=== PATIENT | male | born 1990 | race Caucasian/White ===

== ENCOUNTER 2016-12-29 01:23 | Emergency (ER) | payer OTHER ==
[2016-12-29 01:31] VITALS: BP 115/72; PULSE 65; RESP 18; TEMP 98
== END 2016-12-29 01:52 | disposition home or self-care (01) ==
LOC: EC 01:23
DX: Z02.89 Encounter for other administrative examinations (principal)

== ENCOUNTER 2021-01-28 15:26 | Emergency (ER) | payer BC ==
[2021-01-28] MEDS ORDERED: KETOROLAC 15 MG/ML 1 ML VIAL IM STA (16:23)
--- NOTE | 2021-01-28 17:49 | XR ---
EXAMINATION TYPE: XR humerus RT, XR forearm RT DATE OF EXAM: 01/28/2021 COMPARISON: NONE HISTORY: Fall from skateboard. Fall. TECHNIQUE: AP and lateral views of the right humerus obtained. FINDINGS: There is a nondisplaced radial head fracture. There is significant anterior and posterior f at pad elevation and likely hemarthrosis. There is lucency at the distal radius at the wrist without cortical disruption. No dislocation. Normal mineralization. Shoulder joint is maintained. IMPRESSION: 1. Nondisplaced radial head fracture. Significant fat pad elevation and likely hemarthrosis at the e lbow. 2. Lucency at the distal radius at the wrist, without evidence of cortical disruption. Recommend cor relation with point tenderness. If there is concern for nondisplaced fracture, recommend dedicated wr ist x-ray.
--- NOTE | 2021-01-28 18:50 | XR ---
EXAMINATION TYPE: XR wrist complete RT DATE OF EXAM: 01/28/2021 COMPARISON: Same day right forearm radiograph. HISTORY: . fall. TECHNIQUE: AP, oblique, lateral, and scaphoid views of the right wrist. FINDINGS: No acute fracture. No dislocation. Joint spaces and alignment are normal. Normal mineraliza tion. No significant soft tissue swelling. IMPRESSION: No acute fracture or dislocation of the right wrist.
[2021-01-28 19:02] VITALS: BP 125/77; PULSE 56; RESP 16; TEMP 98
--- NOTE | 2021-01-28 19:05 | ED ---
Upper Extremity HPI - General Chief Complaint: Extremity Injury, Upper Stated Complaint: Arm injury Time Seen by Provider: 01/28/21 16:08 Source: patient, RN notes reviewed Mode of arrival: ambulatory Limitations: no limitations - History of Present Illness Initial Comments: Patient is a 30-year-old male that presents to emergency department status post fall from skateboard prior to arrival. He notes that he fell on his right hand. He notes that he is having some pain in his forearm up to his shoulder. He denied any other issues or complaints at this time. He was a well-appearing 30-year-old male distress or pain. She denied any chest pain first breath headache nausea vomiting diarrhea constipation fever fatigue chills. - Related Data Home Medications Medication Instructions Recorded Confirmed No Known Home Medications 02/16/16 12/29/16 Allergies Allergy/AdvReac Type Severity Reaction Status Date / Time No Known Allergies Allergy Verified 01/28/21 15:30 Review of Systems ROS Statement: Those systems with pertinent positive or pertinent negative responses have been documented in the HPI. ROS Other: All systems not noted in ROS Statement are negative. Past Medical History Past Medical History: No Reported History History of Any Multi-Drug Resistant Organisms: None Reported Past Surgical History: No Surgical Hx Reported Past Psychological History: No Psychological Hx Reported Smoking Status: Current every day smoker Past Alcohol Use History: Rare Past Drug Use History: None Reported General Exam Limitations: no limitations General appearance: alert, in no apparent distress Head exam: Present: atraumatic, normocephalic, normal inspection Eye exam: Present: normal appearance, PERRL, EOMI. Absent: scleral icterus, conjunctival injection, periorbital swelling Neck exam: Present: normal inspection Respiratory exam: Present: normal lung sounds bilaterally. Absent: respiratory distress, wheezes, rales, rhonchi, stridor Cardiovascular Exam: Present: regular rate, normal rhythm, normal heart sounds. Absent: systolic murmur, diastolic murmur, rubs, gallop, clicks Right Shoulder Exam: Present: normal inspection, full ROM. Absent: tenderness, swelling Upper Arm exam: Present: normal inspection, full ROM. Absent: tenderness, swelling Elbow exam: Present: normal inspection, tenderness. Absent: full ROM (Secondary to pain), swelling Neurological exam: Present: alert, oriented X3 Psychiatric exam: Present: normal affect, normal mood Skin exam: Present: warm, dry, intact, normal color. Absent: rash Course Vital Signs 01/28/21 15:28 Temperature 99.2 F Pulse Rate 71 Respiratory 18 Rate Blood Pressure 122/83 O2 Sat by Pulse 97 Oximetry Medical Decision Making - Medical Decision Making 30-year-old male complaining of right arm pain after falling off of the scaphoid. X-ray of the humerus forearm and right wrist ordered. Imaging shows a nondisplaced radial head fracture. Patient will be given a sling and referred to orthopedics for outpatient follow- up. Case discussed with Dr. anders, patient discharge home with follow-up to orthopedics. - Radiology Data Radiology results: report reviewed, image reviewed Right wrist x-ray: No acute fracture dislocation right wrist. Right forearm and humerus x-ray: Nondisplaced radial head fracture. Significant fat pad elevation likely hemarthrosis at the elbow. Lucency of the distal radius at the wrist without evidence of cortical disruption. Recommend correlation with point tenderness. Disposition Clinical Impression: Right radial head fracture Disposition: HOME SELF-CARE Condition: Stable Instructions (If sedation given, give patient instructions): Arm Fracture in Adults (ED) Additional Instructions: Please return to the Emergency Department if symptoms worsen or any other concerns. Follow-up primary care 1-2 days. Follow-up with orthopedics in 1-2 days. Take Motrin as needed for pain control. Keep arm in sling. Is patient prescribed a controlled substance at d/c from ED?: No Referrals: None,Stated [Primary Care Provider] - 1-2 days Time of Disposition: 19:04
== END 2021-01-28 19:19 | disposition home or self-care (01) ==
LOC: EC 15:26
DX: S52.124A Nondisplaced fracture of head of right radius, initial encounter for closed fracture (principal); F17.200 Nicotine dependence, unspecified, uncomplicated; V00.131A Fall from skateboard, initial encounter; Y93.51 Activity, roller skating (inline) and skateboarding
CPT/HCPCS: 99283; 96372; 73060; 73090; 73110; J1885